=== PATIENT | female | born 1990 | race Two or more races ===

== ENCOUNTER 2017-02-26 22:13 | Emergency (ER) | payer SELFPAY ==
[~2017-02-26] VITALS: Ht 175.3 cm; Wt 53.5 kg
[2017-02-26 23:06] VITALS: Ht 175.3 cm; Wt 53.5 kg
[2017-02-27 00:12] LABS: CALCIUM 8.8 mg/dL (8.5-10.1); CARBON DIOXIDE 25.7 mmol/L (21-32); CHLORIDE SERUM 101 mmol/L (98-107); CREATININE SERUM 0.7 mg/dL (0.6-1.0); GFR1 > 60 mL/min; GLUCOSE SERUM 103 mg/dL (74-106); POTASSIUM SERUM 3.3 mmol/L (3.5-5.1); SODIUM SERUM 138 mmol/L (136-145)
[2017-02-27 00:17] LABS: ALBUMIN 4.1 g/dL (3.4-5.0); ALKALINE PHOSPHATASE 50 U/L (46-116); ALT/SGPT 19 U/L (14-59); AST/SGOT 14 U/L (15-37); BILIRUBIN TOTAL 2.1 mg/dL (0.20-1.00); LIPASE 76 IU/L (73-393); TOTAL PROTEIN, SERUM 7.8 g/dL (6.4-8.2)
[2017-02-27 00:27] LABS: PLATELET COUNT 330 x10^3mcL (130-400); RED CELL DISTRIBUTION WIDTH 14.2 % (11.5-14.5)
[2017-02-27 04:35] VITALS: BP 112/63
== END 2017-02-26 23:06 | disposition home or self-care (01) ==
LOC: ED 22:13
PROVIDERS: Emergency Medicine
DX: R10.13 Epigastric pain (principal); R11.10 Vomiting, unspecified
CPT/HCPCS: J1885; J2270; J2405; J7030; Q0092